=== PATIENT | male | born 1990 | race Caucasian/White ===

== ENCOUNTER 2016-06-02 19:02 | Emergency (ER) | payer MEDICAID ==
[~2016-06-02] VITALS: Ht 160 cm; Wt 65.8 kg
[~2016-06-02 19:02] MED LIST: ANUSOL-HC25 MG RECTAL; BACTRIM DS TAB1 EAC1 ORAL; BENTYL10 MG ORAL; METRONIDAZOLE500 MG ORAL; NKM; PYRIDIUM200 M1 ORAL
[2016-06-02] MEDS ORDERED: IBUPROFEN600 MG ORAL ×2 (19:20)
[2016-06-02] MEDS ORDERED: [UNRECOGNIZED DRUG - OTHER] (19:20)
[2016-06-02] MEDS ORDERED: Famotidine 20 MG/ 2ML VIAL IVP ONE (19:45)
[2016-06-02] MEDS ORDERED: Metoclopramide 10mg/2ml Inj IVP ONE (19:45)
[2016-06-02] MEDS ORDERED: Morphine Sulfate 2mg/ml Inj IVP ONE (19:45)
[2016-06-02] MEDS ORDERED: DiphenhydrAMINE 50mg/ml Inj IVP ONE (19:45)
[2016-06-02 20:05] LABS: APPEARANCE,URINE CLEAR; KETONES,URINE 1+ (NEGATIVE); LEUKOCYTE ESTERASE ,URINE NEGATIVE (NEGATIVE); NITRITE,URINE NEGATIVE (NEGATIVE); PH,URINE 6.5 (4.5-8.0); PROTEIN,URINE NEGATIVE (NEGATIVE); UROBILINOGEN,URINE NORMAL MG/DL (0.0-1.0)
[2016-06-02 20:06] LABS: BASOPHILS % (AUTO) 1.1 % (0.0-2.0); LYMPHOCYTES % (AUTO) 23.8 % (20.0-45.0); MEAN CORPUSCULAR HEMOGLOBIN 29.6 PG (27.0-31.0); MEAN CORPUSCULAR HGB CONC 32.5 G/DL (32.0-36.0); MEAN CORPUSCULAR VOLUME 91 FL (80-99); MEAN PLATELET VOLUME 6.4 FL (6.5-10.1); NEUTROPHILS % (AUTO) 64.1 % (45.0-75.0); PLATELET COUNT 219 K/UL (150-450); RED BLOOD COUNT 4.34 M/UL (4.70-6.10); RED CELL DISTRIBUTION WIDTH 11.9 % (11.6-14.8); WHITE BLOOD COUNT 8.4 K/UL (4.8-10.8)
[2016-06-02 20:08] LABS: INR 1.1 (0.9-1.1); PROTHROMBIN TIME 11.4 SEC (9.30-11.50)
[2016-06-02 20:10] LABS: BACTERIA,URINE FEW /HPF; WBC,URINE 0-2 /HPF (0 - 0)
[2016-06-02 20:11] LABS: MUCUS,URINE FEW /LPF (NONE/OCC)
[2016-06-02 20:13] LABS: ALANINE AMINOTRANSFERASE 11 U/L (3-41); ALBUMIN/GLOBULIN RATIO 0.7 (1.0-2.7); ANION GAP 16 (5-15); ASPARTATE AMINO TRANSFERASE 11 U/L (5-40); CALCIUM 9.2 mg/dL (8.6-10.2); CARBON DIOXIDE 27 mEQ/L (20-30); CHLORIDE 94 mEQ/L (98-107); CREATININE 0.8 mg/dL (0.7-1.2); GLOMERULAR FILTRATION RATE > 60 mL/min (>60); HEMOLYSIS 4; LIPASE 18 U/L (< 60); POTASSIUM 3.8 mEQ/L (3.4-4.9); SODIUM 137 mEQ/L (135-145); TOTAL PROTEIN 8.7 g/dL (6.6-8.7)
[2016-06-02 20:19] VITALS: BP 102/78
--- NOTE | 2016-06-02 21:46 | Emergency Room Report ---
History of Present Illness General Chief Complaint: Diarrhea Source: Patient Present Illness HPI Patient presents with 2 weeks of diarrhea, fevers and abdominal pain. He was seen here in September and diagnosed with colitis. He has given a stool sample last week to a lab. Also seen at urgent care and given rx for immodium. Still with pain 8/10 diffuse and occasionally crampy with diarrhea. This is bloody and has mucous. No dysuria. Feels weak. No vomiting. Seen also for prostatitis in past. Review of CT 09/27/15: IMPRESSION: Left colitis, likely inflammatory. Both infectious and noninfectious etiologies must be considered. No other evidence of acute abdominopelvic disease, with limitation as described. Subtle but potentially significant abnormalities the gastrointestinal tract may be missed. Repeat CT scan with full oral and IV contrast preparation recommended for more complete evaluation. Subcentimeter low-attenuation liver lesion too small to accurately characterize, probably but not definitely cyst. No URI sy, dysuria, rectal pain, testicular pain, rashes, joint pain, chest pain. No recent travel, exposure to sick contacts, raw seafood. Allergies: Coded Allergies: No Known Allergies (Unverified , 07/23/12) Patient History Past Medical History: see triage record Pertinent Family History: other - cousin with ulcerative colitis Social History: Denies: smoking Social History Narrative at home Reviewed Nursing Documentation: PMH: Agreed, PSxH: Agreed Nursing Documentation-PMH Hx Gastrointestinal Problems: Yes - Colitis Review of Systems All Other Systems: negative except mentioned in HPI Physical Exam Vital Signs Date Time Temp Pulse Resp B/P Pulse Ox O2 Delivery O2 Flow Rate FiO2 06/02/16 19:13 99.9 111 16 121/72 98 Room Air Sp02 EP Interpretation: reviewed, normal General Appearance: no apparent distress, GCS 15 Head: normocephalic Eyes: bilateral eye PERRL, bilateral eye normal inspection ENT: moist mucus membranes Neck: supple Respiratory: chest non-tender, lungs clear, normal breath sounds Cardiovascular #1: regular rate, rhythm Cardiovascular #2: 2+ radial (R) Gastrointestinal: normal inspection, normal bowel sounds, no mass, non- distended, no guarding, no rebound, tenderness - diffuse, but soft, scaphoid Musculoskeletal: back normal, gait/station normal, normal range of motion Neurologic: alert, oriented x3, grossly normal Psychiatric: mood/affect normal Skin: normal inspection, warm/dry Medical Decision Making Diagnostic Impression: Primary Impression: Colitis ER Course Patient presents with diarrhea, abdominal pain and fevers. DDx: colitis ( inflammatory bowel disease), dysentery, gastroenteritis, diverticulitis amongst others. Exam against diverticulitis or surgical abdomen. Time frame makes gastroenteritis less likely. Urgent evaluation with labs and x-rays. Treatment with IV hydration, analgesia. Will send stool for analysis. Labs unremarkable (normal WBC, lactate and lipase). Patient improved with decreased pain. No stool produced. Discussed need for GI specialist and evaluation for inflammatory bowel disease. Patient stable for outpatient observation and treatment. Laboratory Tests Test 06/02/16 19:46 06/02/16 20:28 White Blood Count 8.4 K/UL (4.8-10.8) Red Blood Count 4.34 M/UL (4.70-6.10) L Hemoglobin 12.9 G/DL (14.2-18.0) L Hematocrit 39.5 % (42.0-52.0) L Mean Corpuscular Volume 91 FL (80-99) Mean Corpuscular Hemoglobin 29.6 PG (27.0-31.0) Mean Corpuscular Hemoglobin Concent 32.5 G/DL (32.0-36.0) Red Cell Distribution Width 11.9 % (11.6-14.8) Platelet Count 219 K/UL (150-450) Mean Platelet Volume 6.4 FL (6.5-10.1) L Neutrophils (%) (Auto) 64.1 % (45.0-75.0) Lymphocytes (%) (Auto) 23.8 % (20.0-45.0) Monocytes (%) (Auto) 10.0 % (1.0-10.0) Eosinophils (%) (Auto) 1.0 % (0.0-3.0) Basophils (%) (Auto) 1.1 % (0.0-2.0) Prothrombin Time 11.4 SEC (9.30-11.50) Prothrombin Time INR 1.1 (0.9-1.1) PTT 28 SEC (23-33) Urine Color Yellow Urine Appearance Clear Urine pH 6.5 (4.5-8.0) Urine Specific [place] 1.010 (1.005-1.035) Urine Protein Negative (NEGATIVE) Urine Glucose (UA) Negative (NEGATIVE) Urine Ketones 1+ (NEGATIVE) H Urine Occult Blood 1+ (NEGATIVE) H Urine Nitrite Negative (NEGATIVE) Urine Bilirubin Negative (NEGATIVE) Urine Urobilinogen Normal MG/DL (0.0-1.0) Urine Leukocyte Esterase Negative (NEGATIVE) Urine RBC 2-4 /HPF (0 - 0) H Urine WBC 0-2 /HPF (0 - 0) Urine Squamous Epithelial Cells None /LPF (NONE/OCC) Urine Bacteria Few /HPF (NONE) Urine Mucus Few /LPF (NONE/OCC) H Sodium Level 137 mEQ/L (135-145) Potassium Level 3.8 mEQ/L (3.4-4.9) Chloride Level 94 mEQ/L (98-107) L Carbon Dioxide Level 27 mEQ/L (20-30) Anion Gap 16 (5-15) H Blood Urea Nitrogen 6 mg/dL (7-23) L Creatinine 0.8 mg/dL (0.7-1.2) Estimate Glomerular Filtration Rate > 60 mL/min (>60) Glucose Level 100 mg/dL (74-106) Calcium Level 9.2 mg/dL (8.6-10.2) Total Bilirubin 0.3 mg/dL (0.0-1.2) Aspartate Amino Transferase (AST) 11 U/L (5-40) Alanine Aminotransferase (ALT) 11 U/L (3-41) Alkaline Phosphatase 65 U/L (40-129) Total Creatine Kinase 31 U/L (38-174) L Total Protein 8.7 g/dL (6.6-8.7) Albumin 3.7 g/dL (3.5-5.2) Globulin 5.0 g/dL Albumin/Globulin Ratio 0.7 (1.0-2.7) L Lipase 18 U/L (< 60) Lactic Acid Level 0.90 mmol/L (0.66-2.22) Other X-Ray Diagnostic Results Other X-Ray Diagnostic Results : X-Ray Ordered: abd Findings: other - no SBO, masses, calcifications Number of Views: 1 Last Vital Signs Date Time Temp Pulse Resp B/P Pulse Ox O2 Delivery O2 Flow Rate FiO2 06/02/16 22:31 98.4 91 16 104/58 100 Room Air Status: improved Disposition: HOME, SELF-CARE Condition: Improved Scripts Acetaminophen (Tylenol) 325 Mg Tablet 650 MG ORAL Q6H Y for Prn Pain/Headache/Temp > 101, #30 TAB 0 Refills Prov: Hiram Conde M.D. 06/02/16 Tramadol Hcl* (ULTRAM*) 50 Mg Tablet 50 MG ORAL Q6H Y for For Pain, #14 TAB 0 Refills Prov: Hiram Conde M.D. 06/02/16 Referrals: NOT CHOSEN RENEE/,REFERRING (PCP) Hiram Conde M.D. Jun 02, 2016 21:46
[2016-06-02 21:48] VITALS: BP 104/58
[2016-06-02] MEDS ORDERED: TRAMADOL HCL50 MG ORAL (22:21)
[2016-06-02] MEDS ORDERED: TYLENOL325 MG ORAL (22:21)
[2016-06-02 22:31] VITALS: BP 104/58
--- NOTE | 2016-06-03 11:55 | Diagnostic Imaging Report ---
Indication: Abdominal pain Technique: Supine view of the abdomen Comparison: none Findings: There are a few prominent left upper quadrant small bowel loops. The bowel gas pattern is unremarkable. No unusual masses or calcifications Impression: Nonspecific prominence of left upper quadrant small bowel loops, could indicate focal ileus No acute process otherwise
== END 2016-06-02 22:31 | disposition home or self-care (01) ==
LOC: EMR 19:55
DX: K52.9 Noninfective gastroenteritis and colitis, unspecified (principal)
CPT/HCPCS: 36415; 74000; 80053; 81003; 82550; 83605; 83690; 85025; 85610; 85730; 96360; 96366; 96374; 96375; 99284; J1200; J2270; J2405; J2765; S0028